=== PATIENT | male | born 1980 | race Caucasian/White ===

== ENCOUNTER → 2024-07-24 | Outpatient (CLI) | payer OTHER ==
--- NOTE | 2024-07-24 16:42 | MR ---
INDICATION: Patient age:Male; 44 years old; Reason for study: M51.26 OTHER INTERVERTEBRAL DISC DISPLACEMENT, LUM; PHH. COMPARISONS: No priors. TECHNIQUE: Multi planar, multi sequence imaging was performed utilizing: T1-weighted, T2-weighted, a nd turbo inversion recovery imaging of the lumbar spine. The patient was not given contrast. FINDINGS: The lumbar vertebral bodies do have preserved heights. Straightening of the normal lumbar lordosis. No spondylolisthesis. Mild disc desiccation at L5-S1. The conus medullaris and the distal spinal cord do appear unremarkable with regards to their signal intensity and morphology. L1-L2: No significant disc pathology is identified. The spinal canal and neural foramen are patent. L2-L3: No significant disc pathology is identified. The spinal canal and neural foramen are patent. L3-L4: Posterior left lateral annular fissure. Acute Schmorl's node involving the superior aspect of the superior endplate of the L3 vertebral body with T1/T2 increased signal and increased STIR signal . No significant central canal or neuroforaminal stenosis. L4-L5: Minimal broad-based disc bulge is identified with associated enlargement of the facet joints. The spinal canal remains patent. Neural canals are mildly narrowed bilaterally. L5-S1: The intervertebral disc appears round on its contour posteriorly with a posterior annular fis sure. No significant mass effect upon the thecal sac. Facet joints are enlarged. Neural canals do r emain patent. Other significant findings: None. IMPRESSION: 1. No definitive evidence for disc herniation or significant spinal canal stenosis. 2. Mild multilevel degenerative disc disease with annular fissures involving the L3-L4 and L5-S1 dis cs. Acute Schmorl's node involving the superior endplate of the L4 vertebral body. [facility], , 07/24/2024 4:40 PM
== END | disposition home or self-care (01) ==
LOC: RADMRIMAIN 15:53
PROVIDERS: ATTEND Psychiatry & Neurology Neurology
DX: M51.26 Other intervertebral disc displacement, lumbar region (principal); M47.816 Spondylosis without myelopathy or radiculopathy, lumbar region; M51.379 Other intervertebral disc degeneration, lumbosacral region without mention of lumbar back pain or lower extremity pain
CPT/HCPCS: 72148

== ENCOUNTER → 2024-08-27 | Outpatient (CLI) | payer OTHER ==
--- NOTE | 2024-08-27 14:15 | NM ---
INDICATION: Patient age:Male; 44 years old; Reason for study: M54.59 low back pain; PHH. COMPARISON: MR lumbar spine 07/24/2024. TECHNIQUE: Intravenous administration of 23.5 mCi of Technetium 99m-Medronate followed by multiple sc intigraphic images of the appendicular and axial skeleton. Additionally, small field of view planar a nterior and posterior images of the lumbosacral spine and pelvis. Lastly, coronal, transverse, and sa gittal SPECT images of the lumbosacral spine and pelvis were generated for review. FINDINGS: No abnormal uptake is identified within the appendicular or axial skeleton to suggest metastatic dise ase or other abnormality. Physiologic radiotracer activity is demonstrated in the kidneys and bladder. IMPRESSION: Unremarkable nuclear medicine bone scan. [facility], , 08/27/2024 2:13 PM
== END | disposition home or self-care (01) ==
LOC: RADNMMAIN 07:30
PROVIDERS: ATTEND Orthopaedic Surgery Orthopaedic Surgery of the Spine
DX: M54.59 Other low back pain (principal)
CPT/HCPCS: 78306; 78803; A9503

== ENCOUNTER → 2024-10-12 | Day surgery (SDC) | payer OTHER ==
[2024-10-10 11:01] VITALS: BMI 27.3
[~2024-10-12] MED LIST: LIDOCAINE 1% INJ 10MG/ML (20 ML MDV) ONE; PROPOFOL 10 MG/ML 20 ML VIAL IV ONE
[2024-10-12] MEDS: LACTATED RINGERS 1,000 ML IV ONE (10:11)
[2024-10-12 10:25] VITALS: TEMP 98.7
[2024-10-12] MEDS: LACTATED RINGERS 1,000 ML IV SCH (10:35)
[2024-10-12] MEDS: MIDAZOLAM 2 MG/2 ML VIAL IV STA (10:40)
--- NOTE | 2024-10-12 11:16 | P.PCN ---
Date of Procedure: 10/12/24 Procedure(s) Performed: BRIEF HISTORY: Patient is a 44-year-old, pleasant, white male scheduled for an upper endoscopy as a part of evaluation of chest pain and shortness of breath for last few months duration.. He was treated with Prilosec for a few weeks with no help. Recently has been on Nexium 20 mg daily with no help. Is scheduled for an upper endoscopy to evaluate for PROCEDURE PERFORMED: Esophagogastroduodenoscopy with biopsy. PREOPERATIVE DIAGNOSIS: History of GERD and atypical chest pain. IV sedation per anesthesia. PROCEDURE: After informed consent was obtained, the patient was brought into the endoscopy unit. IV sedation was administered by Anesthesia under continuous monitoring. Initially the Olympus GIF-140 video endoscope was inserted into the mouth. Esophagus intubated without any difficulty. It was gradually advanced into the stomach and duodenum and carefully examined. The bulb and the second part of the duodenum appeared normal. The scope at this time was withdrawn to the stomach, adequately insufflated with air, and upon careful examination, mucosa of the antrum, patchy areas of erythema consistent with gastritis and biopsies were done from this area. Mucosa body, cardia and the fundus appeared normal. The scope was then withdrawn into the esophagus. Small sliding-type hiatal hernia noted. The GE junction was located at 40 cm from the incisors. The esophagus appeared normal. There were no erosions or ulcerations seen, biopsies were done from the distal esophagus and the patient tolerated the procedure well. IMPRESSION: 1. Small hiatal hernia. 2. No evidence of esophagitis 3. Mild antral gastritis. RECOMMENDATIONS: The findings of this examination were discussed with the patient as well as his family. He was advised to follow-up with the biopsy results. Continue with Nexium 20 mg daily and follow antireflux measures. Recommend pulmonary consultation for evaluation of shortness of breath..
[2024-10-12 11:23] VITALS: RESP 16
[2024-10-12 11:41] VITALS: BP 120/81; PULSE 70
== END ==
LOC: ORWHC2ENDO 09:47
PROVIDERS: ATTEND Internal Medicine Gastroenterology
DX: R10.13 Epigastric pain (principal); K31.9 Disease of stomach and duodenum, unspecified; K29.70 Gastritis, unspecified, without bleeding; K44.9 Diaphragmatic hernia without obstruction or gangrene; K21.9 Gastro-esophageal reflux disease without esophagitis
CPT/HCPCS: 43239; J2250; J2003; J2704; 88305

== ENCOUNTER → 2024-12-07 | Outpatient (CLI) | payer OTHER ==
--- NOTE | 2024-12-07 17:41 | MR ---
EXAMINATION TYPE: MR pelvis wo con DATE OF EXAM: 12/07/2024 COMPARISON: Nuclear medicine bone scan 08/27/2024, MRI lumbar spine 07/24/2024. CLINICAL INDICATION:Male, 44 years old with history of M54.59 OTHER LOW BACK PAIN G89.4 CHRONIC PAIN SYND; [facility], TECHNIQUE: Triplane multisequence imaging was performed of the pelvis without the administration of intravenous contrast. FINDINGS: Reproductive: Prostate: Unremarkable. Seminal vesicle's: Unremarkable. Testes: Unremarkable. Bladder: Underdistended but grossly unremarkable. Bowel: Unremarkable as visualized. Peritoneum: No free fluid. No evidence of adenopathy. Vasculature: Unremarkable. Abdominal wall/soft tissues: Unremarkable. Musculoskeletal: Bone marrow signal is within normal signal intensity. IMPRESSION: No evidence of suspicious abnormality within the pelvis. [facility], , 12/07/2024 5:39 PM
== END | disposition home or self-care (01) ==
LOC: RADMRIMAIN 15:03
PROVIDERS: ATTEND Orthopaedic Surgery Orthopaedic Surgery of the Spine
DX: M51.16 Intervertebral disc disorders with radiculopathy, lumbar region (principal); M46.1 Sacroiliitis, not elsewhere classified
CPT/HCPCS: 72195